=== PATIENT | male | born 1960 | race Native Hawaiian/Other Pacific Islander ===

== ENCOUNTER 2018-01-15 11:51 | Emergency (ER) | payer OTHER ==
[~2018-01-15] VITALS: Ht 167.6 cm; Wt 65.8 kg
[2018-01-15 13:42] LABS: PLATELET COUNT 318 K/uL (142-355)
[2018-01-15 13:48] LABS: POTASSIUM 3.8 mmol/L (3.6-5.2)
[2018-01-15 16:56] VITALS: BP 138/74
== END 2018-01-15 16:58 | disposition home or self-care (01) ==
LOC: ED 11:51
PROVIDERS: Family Medicine
DX: R42 Dizziness and giddiness (principal); R26.9 Unspecified abnormalities of gait and mobility
CPT/HCPCS: 36415; 80053; 81000; 85027; 99283

== ENCOUNTER 2021-07-29 14:35 | Emergency (ER) | payer OTHER ==
[~2021-07-29] VITALS: Ht 167.6 cm; Wt 72.6 kg
[2021-07-29 14:45] VITALS: TEMP 97.1
[2021-07-29 15:08] LABS: PLATELET COUNT 287 K/uL (142-355)
[2021-07-29 16:46] VITALS: BP 146/78
== END 2021-07-29 16:50 | disposition home or self-care (01) ==
LOC: ED 14:35
PROVIDERS: Emergency Medicine
DX: Z87.820 Personal history of traumatic brain injury (principal); G81.91 Hemiplegia, unspecified affecting right dominant side; I10 Essential (primary) hypertension; Z79.899 Other long term (current) drug therapy; Z51.81 Encounter for therapeutic drug level monitoring; F17.210 Nicotine dependence, cigarettes, uncomplicated
CPT/HCPCS: 80048; 80307; 85027; 99283

== ENCOUNTER 2021-09-06 09:01 | Outpatient (CLI) | payer OTHER | END 2021-09-06 19:00 | disposition home or self-care (01) | LOC: RAD 09:01 | PROVIDERS: ATTEND Family Medicine | DX: M54.2 Cervicalgia (principal); M54.89 Other dorsalgia; M25.552 Pain in left hip; M25.511 Pain in right shoulder ==